=== PATIENT | male | born 2000 | race Caucasian/White ===

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

== ENCOUNTER 2019-10-24 12:46 | Emergency (ER) | payer BC, OTHER ==
[2019-10-24 13:11] VITALS: BP 151/92; PULSE 79; RESP 18; TEMP 98.5
--- NOTE | 2019-10-24 13:51 | XR ---
EXAMINATION TYPE: XR tibia fibula RT , 4 VIEWS DATE OF EXAM ORDERED: 10/24/2019 HISTORY: pain. COMPARISON: Previous views of the left tibia and fibula dated 04/17/2003. FINDINGS: No fracture, dislocation or other acute osseous lesion is seen. No knee joint effusion is seen. No ankle joint effusion is seen. IMPRESSION: NO ACUTE OSSEOUS LESION.
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
== END 2019-10-24 14:00 | disposition home or self-care (01) ==
LOC: EC 12:46
DX: S80.11XA Contusion of right lower leg, initial encounter (principal); I10 Essential (primary) hypertension; V00.311A Fall from snowboard, initial encounter; Y93.23 Activity, snow (alpine) (downhill) skiing, snowboarding, sledding, tobogganing and snow tubing
CPT/HCPCS: 99284

== ENCOUNTER 2023-03-19 06:35 | Day surgery (SDC) | payer BC ==
[2023-03-12 10:51] VITALS: BMI 26.4
--- NOTE | 2023-03-18 13:30 | P.HPOR ---
History of Present Illness H&P Date: 03/18/23 Subjective: This is a 22 year old male that presents today for initial evaluation regarding one-year history of a left dorsal ulnar wrist mass. He denies any injury or inciting event but states that is in a sensitive area and when he wears his watch it presses right on the undersurface of the watch creating pain. He denies any numbness or tingling. He states he has a similar mass on the posterior aspect of the right arm. Physical Examination: LUE: AIN/PIN/Radial/Ulnar/Median motor intact. Radial/Ulnar/Median SILT. 2+/4 Radial/Ulnar pulses palpated. 5/5 APB, 5/5 FDI. Negative Finkelsteins, negative CMC grind, negative Durkan's compression. 2 x 2 centimeter round, mobile soft tissue mass over dorsal ulnar aspect of the wrist. Imaging: X-Rays of the left wrist, 3 view taken in the office today demonstrate no acute abnormality with no fracture or dislocation. Impression: 1.) Left wrist soft tissue mass. Plan: Diagnosis and treatment options were discussed with the patient. He states the soft tissue mass is in a sensitive area and after 1 year and symptoms his symptoms have not gotten any better. He would like to pursue a left wrist soft tissue mass excision. Risks and benefits of surgery including bleeding, infection, damage to surrounding tissue, need for further surgery, residual numbness were discussed and the patient wished to go forward with surgery. The patient was agreeable with this plan. CC: Desi Hall M.D. -Danial Sanchez DO Orthopedic Hand/Upper Extremity Surgeon Past Medical History Past Medical History: Hypertension Additional Past Medical History / Comment(s): Hx hypertension 5 yrs ago, currently resolved. History of Any Multi-Drug Resistant Organisms: None Reported Past Surgical History: No Surgical Hx Reported Past Anesthesia/Blood Transfusion Reactions: No Reported Reaction Past Psychological History: No Psychological Hx Reported Smoking Status: Never smoker Past Alcohol Use History: Occasional Past Drug Use History: None Reported - Past Family History Mother Family Medical History: No Reported History Medications and Allergies Home Medications Medication Instructions Recorded Confirmed Type No Known Home Medications 03/12/23 03/12/23 History Allergies Allergy/AdvReac Type Severity Reaction Status Date / Time No Known Allergies Allergy Verified 03/12/23 10:43 Physical Examination Osteopathic Statement: *. No significant issues noted on an osteopathic structural exam other than those noted in the History and Physical/Consult.
[~2023-03-19 06:35] MED LIST: DEXAMETHASONE SOD PHOSPHATE 4 MG/ML 1 ML VIAL IV ONE; HYDROmorphone 0.5 MG/0.5 ML SYRINGE IVP PRN; LACTATED RINGERS 1,000 ML IV SCH; LIDOCAINE 1% (10MG/ML) FOR IV START INTRADERMA PRN; MIDAZOLAM 2 MG/2 ML VIAL IV PRN; ONDANSETRON 4 MG/2 ML VIAL IVP ONE
[2023-03-19 07:50] VITALS: RESP 16
[2023-03-19] MEDS ORDERED: fentaNYL (PF) 50 MCG/ML 2 ML AMP ONE (07:51)
[2023-03-19] MEDS ORDERED: LIDOCAINE 2% INJ 20 MG/ML (2 ML VIAL) ONE (07:51)
[2023-03-19] MEDS ORDERED: MIDAZOLAM 2 MG/2 ML VIAL ONE (07:51)
[2023-03-19] MEDS ORDERED: PROPOFOL 10 MG/ML 20 ML VIAL IV ONE (07:51)
[2023-03-19] MEDS ORDERED: BUPIVACAINE (PF) 0.5% 30 ML VIAL SQ ONE ×2 (08:04→08:25)
[2023-03-19] MEDS ORDERED: LIDOCAINE 1% INJ 10MG/ML (20 ML MDV) SQ ONE ×2 (08:04→08:25)
--- NOTE | 2023-03-19 08:42 | P.OP ---
Date of Procedure: 03/19/23 Preoperative Diagnosis: 1.) Left wrist soft tissue mass Postoperative Diagnosis: 1.) Left wrist soft tissue mass Procedure(s) Performed: 1.) Left wrist soft tissue mass excision Anesthesia: GREGORIO Surgeon: Danial Sanchez Estimated Blood Loss (ml): 0 Pathology: other (Left wrist soft tissue mass) Condition: stable Disposition: PACU Description of Procedure: This is a 22 year old male who presents today for a left wrist soft tissue mass excision. Risks and benefits of surgery were discussed with the patient including bleeding, damage to surrounding tissue, infection, recurrence, need for further surgery as well as risks of anesthesia including pulmonary embolism and even and the patient wished to proceed with surgical intervention. The patient was seen in the pre-operative area by myself. Consent and H&P were completed and updated. The correct extremity was marked in the pre-operative area by myself and all other questions were answered. Operative Narrative: The patient was brought to the operating room by the department of anesthesia. They remained on the portable stretcher and a rolling hand table was brought to the side of the operative extremity. Pre-operative time out was performed indicating the correct patient, procedure and laterality. All in the room agreed. Pre-operative antibiotics were given prior to skin incision. The patient was then drifted off to sleep by the department of anesthesia. A nonsterile tourniquet was then applied to the operative extremity and the left upper extremity was then prepped and draped in normal sterile fashion. The operative extremity was the exsanguinated with an esmarch bandage and the tourniquet was inflated to 250mmHg. Longitudinal incision was made with 15 blade scalpel over the dorsal aspect of the wrist in an ellipse fashion for complete excision of the mass. Blunt dissection was taken to separate the mass from the deep subcutaneous tissues while preserving the dorsal sensory branch of the ulnar nerve. The mass was found to be connected to the epidermal and dermal layers and it was excised in it's entirety and then collected and sent for pathology. The wound was then closed with 4-0 monocryl sutures and mastisol and steri strips. 8cc's of 50:50 mixture of 0.5% Bupivicaine and 2% Lidocaine was injected into the soft tissues. Soft dressing with 4x4's, cast padding and emigdio wrap was applied. Tournqiuet was let down and the hand had immediate perfusion. The patient was then woken by the department of anesthesia and transferred to PACU in stable condition. Yong FRAGA was present to assist in major potions of the case. Danial Sanchez D.O. Orthopedic Hand/Upper Extremity Surgeon
[2023-03-19 08:44] VITALS: TEMP 96.9
[2023-03-19] MEDS ORDERED: ACETAMINOPHEN TAB 500 MG TAB ONE (09:48)
[2023-03-19 09:53] VITALS: BP 136/77; PULSE 62
[2023-03-19] MEDS ORDERED: ACETAMINOPHEN TAB 500 MG TAB PO ONE (09:53)
== END 2023-03-19 10:15 | disposition home or self-care (01) ==
LOC: OR 06:35
PROVIDERS: ATTEND Orthopaedic Surgery Hand Surgery
DX: D23.62 Other benign neoplasm of skin of left upper limb, including shoulder (principal); I10 Essential (primary) hypertension; Z86.59 Personal history of other mental and behavioral disorders; Z79.899 Other long term (current) drug therapy
CPT/HCPCS: 25075; J2250; J1100; J0690; J2405; J2001 ×2; J3010; J2704; 88305